=== PATIENT | female | born 1970 | race Caucasian/White ===

== ENCOUNTER 2021-04-02 12:34 | Observation (INO) ==
[2021-04-02] MEDS ORDERED: Ondansetron ODT 4 MG TAB.RAPDIS SL PRN (16:33)
[2021-04-02] MEDS ORDERED: Naloxone 0.4 MG/ML INJ IVP PRN (16:33)
[2021-04-02] MEDS: 0.9 % Sodium Chloride 1,000 ML IVC SCH (17:31)
[2021-04-02] MEDS ORDERED: Topiramate 25 MG TABLET PO SCH (18:00)
[2021-04-02] MEDS ORDERED: traZODone 50 MG TABLET PO ONE (22:10)
[2021-04-03 05:05] LABS: Hematocrit 34.7 % (35.3-44.9); Mean Corpuscular HGB Conc 31.7 g/dL (31.6-35.5); Mean Corpuscular Hemoglobin 31.5 pg (28.0-33.3); Mean Corpuscular Volume 99.4 fL (83.0-100.0); Platelet Count 307 K/mcL (140-400); Red Blood Count 3.49 M/mcL (3.82-4.97); Red Cell Distribution Width 12.1 % (11.5-14.5); White Blood Count 6.1 K/mcL (4.3-11.1)
[2021-04-03 05:27] LABS: Calcium 8.6 mg/dL (8.6-10.3); Potassium 4.7 mEq/L (3.5-5.1)
[2021-04-03] MEDS ORDERED: *HR* HYDROmorphone PF 0.5 MG/0.5 ML SYRINGE IVP PRN (07:10)
[2021-04-03] MEDS ORDERED: *HR* FentaNYL (PF) 100 MCG/2 ML VIAL IVP PRN (07:10)
[2021-04-03] MEDS ORDERED: *HR* OxyCODONE Immed Rel 5 MG TABLET PO PRN (07:10)
[2021-04-03] MEDS: 0.9 % Sodium Chloride 1,000 ML IVC SCH (07:48)
[2021-04-03] MEDS ORDERED: ARIPiprazole 2 MG TABLET PO SCH (09:00)
[2021-04-03] MEDS ORDERED: Topiramate 100 MG TABLET PO SCH (09:00)
[2021-04-03] MEDS ORDERED: *HR* Propofol 200 MG/20 ML VIAL IVP ONE (09:02)
[2021-04-03] MEDS ORDERED: *HR* FentaNYL (PF) 100 MCG/2 ML VIAL ONE (09:02)
[2021-04-03] MEDS ORDERED: Ondansetron 4 MG/2 ML VIAL ONE (09:02)
[2021-04-03] MEDS ORDERED: *HR* Midazolam HCl 2 MG/2 ML VIAL ONE (09:02)
[2021-04-03] MEDS ORDERED: Lidocaine -MPF 2% 2 ML VIAL ONE (09:02)
[2021-04-03] MEDS ORDERED: Isovue-300 50ML VIAL ONE (09:21)
[2021-04-03] MEDS ORDERED: ceFAZolin 2,000 MG in Water for inj. (sterile) 20 ML IVP ONE (09:48)
[2021-04-03] MEDS ORDERED: EPHEDrine 50 MG/ML VIAL ONE (09:48)
[2021-04-03] MEDS ORDERED: Ondansetron ODT 4 MG TAB.RAPDIS SL PRN (10:27)
[2021-04-03] MEDS ORDERED: Naloxone 0.4 MG/ML INJ IVP PRN (10:27)
[2021-04-03] MEDS ORDERED: *HR* Belladonna Alkaloids/Opium 30 MG RECTAL SUPPOSITORY RC PRN (10:27)
[2021-04-03] MEDS ORDERED: 0.9 % Sodium Chloride 1,000 ML IVC SCH ×2 (10:27→11:26)
[2021-04-03 15:19] VITALS: BP 125/76; PULSE 68; TEMP 98; O2SAT 97
[2021-04-03] MEDS ORDERED: Topiramate 25 MG TABLET PO SCH (18:00)
[2021-04-04] MEDS ORDERED: Topiramate 100 MG TABLET PO SCH (09:00)
[2021-04-04] MEDS ORDERED: ARIPiprazole 2 MG TABLET PO SCH (09:00)
== END 2021-04-03 17:14 | disposition home or self-care (01) ==
LOC: 3BNU → SUATTDRO 14:42
PROVIDERS: ADMIT Pharmacist; ATTEND Internal Medicine